=== PATIENT | male | born 1990 | race Caucasian/White ===

== ENCOUNTER 2017-08-01 18:08 | Emergency (ER) | payer OTHER ==
[2017-08-01 18:50] LABS: ABSOLUTE BASOPHIL COUNT 0.1 /CUMM (0.0-0.2); ABSOLUTE EOSINOPHIL COUNT 0.4 /CUMM (0.0-0.7); ABSOLUTE GRANULOCYTE CT 6.7 /CUMM (1.4-6.5); ABSOLUTE LYMPH COUNT 3.7 /CUMM (1.2-3.4); ABSOLUTE MONOCYTE COUNT 0.8 /CUMM (0.10-0.60); BASOPHIL % 0.4 % (0.0-2.0); EOSINOPHIL % 3.1 % (0-5); GRANULOCYTE % 57.8 % (42.2-75.2); HEMATOCRIT 45.5 % (42-52); MEAN CORPUSCULAR HGB 29.4 PG (27.0-31.0); MEAN CORPUSCULAR HGB CONC 33.7 G/DL (33.0-37.0); MEAN CORPUSCULAR VOLUME 87.2 FL (80.0-94.0); MEAN PLATELET VOLUME 8.9 FL (7.4-10.4); PLATELET COUNT 307 /CUMM (130-400); RBC DISTRIBUTION WIDTH 12.3 % (11.5-14.5); RED BLOOD CELL CT 5.22 /CUMM (4.70-6.10); WHITE BLOOD CELL COUNT 11.6 /CUMM (4.8-10.8)
[2017-08-01 20:16] VITALS: BP 157/92
--- NOTE | 2017-08-01 20:38 | ED CARDIAC/CP/PALPITATIONS ---
History of Present Illness General Chief Complaint: Chest Pain Stated Complaint: SLIGHT CHEST PAIN PER PT Source: patient, old records Exam Limitations: no limitations Vital Signs & Intake/Output Vital Signs & Intake/Output Vital Signs Date Time Temp Pulse Resp B/P B/P Pulse O2 O2 Flow FiO2 Mean Ox Delivery Rate 08/01 2052 Room Air 08/01 2015 98.2 75 18 157/92 98 Room Air 08/01 1820 97.8 80 22 155/96 98 Allergies Coded Allergies: No Known Allergies (05/09/17) Reconcile Medications No Known Home Medications Triage Note: PER PT FEELS LIKE HEART IS TRYING TO GO INTO A FIB SINCE 0600 WOKE UP THIS AM THEN A SHORT TIME LATER FELT IT FLUTTERING Triage Nurses Notes Reviewed? yes HPI: Patient presents for evaluation of intermittent fluttering in his chest. He fears he will go back into atrial fibrillation. He states that although he has been having episodes of palpitations since age 15 he was just diagnosed with atrial fibrillation about 3 months ago. He states that ever since being cardioverted at that time he has suffered lower substernal chest discomfort intermittently. He states that he did have an episode of that same chest discomfort about 3 hours ago. Fortunately the patient is pain-free and symptom- free at this time. Past History Travel History Traveled to [place] past 21 day No Medical History Any Pertinent Medical History? see below for history Neurological: NONE EENT: NONE Cardiovascular: AFIB Respiratory: NONE Gastrointestinal: NONE Hepatic: NONE Renal: NONE Musculoskeletal: NONE Psychiatric: NONE Endocrine: NONE Surgical History Surgical History: non-contributory Psychosocial History What is your primary language Georgian Tobacco Use: Current Daily Use Daily Tobacco Use Amount/Type: => 5 Cigarettes daily ETOH Use: 5 nights per week, 1-8 beers at a time Family History Hx Contributory? No Review of Systems Review of Systems Constitutional: Reports: no symptoms. EENTM: Reports: no symptoms. Respiratory: Reports: no symptoms. Cardiovascular: Reports: see HPI. GI: Reports: no symptoms. Genitourinary: Reports: no symptoms. Musculoskeletal: Reports: no symptoms. Skin: Reports: no symptoms. Neurological/Psychological: Reports: no symptoms. Hematologic/Endocrine: Reports: no symptoms. Immunologic/Allergic: Reports: no symptoms. All Other Systems: Reviewed and Negative Physical Exam Physical Exam Cardiovascular: see below Comments: Gen.: Well-nourished, well-developed, no acute respiratory distress. Head: Normocephalic, atraumatic. Eyes: Normal inspection bilaterally Ears: Normal inspection bilaterally Nose: Normal inspection Throat/mouth : Moist mucosa Neck: Supple, full range of motion, no goiter Heart: Regular rate and rhythm, soft systolic murmur throughout the precordium Lungs: Clear to auscultation bilaterally with normal air entry Chest: Nontender Back: Normal range of motion Abdomen: Soft, nontender, nondistended, normal bowel sounds Extremities: Normal range of motion grossly, equal radial pulses, no cyanosis clubbing or edema, calves nontender Neurologic: Cranial nerves grossly intact, speech is clear Skin: warm and dry Psychiatric: Calm, cooperative, no apparent delusions or hallucinations Core Measures ACS in differential dx? No CVA/TIA Diagnosis No Sepsis Present: No Sepsis Focused Exam Completed? No Progress Differential Diagnosis: dysrhythmia, hypothyroidism, anxiety, coronary artery disease, holiday heart syndrome Plan of Care: Orders Procedure Date/time Status Telemetry/Barrel Turner 08/01 2036 Active TROPONIN LEVEL 08/01 182 Complete MAGNESIUM 08/01 182 Complete COMPREHENSIVE METABOLIC PANEL 08/01 1821 Complete CBC WITHOUT DIFFERENTIAL 08/01 1820 Complete EKG 08/01 181 Active Laboratory Tests 08/01/17 1830: Anion Gap 13, Estimated GFR > 60, BUN/Creatinine Ratio 18.9, Glucose 94, Calcium 9.8, Magnesium 1.9, Total Bilirubin 0.3, AST 31, ALT 61, Alkaline Phosphatase 55 , Troponin I < 0.01, Total Protein 7.6, Albumin 4.8, Globulin 2.8, Albumin/ Globulin Ratio 1.7, CBC w Diff NO MAN DIFF REQ, RBC 5.22, MCV 87.2, MCH 29.4, RDW 12.3, MPV 8.9, Gran % 57.8, Lymphocytes % 31.7, Monocytes % 7.0, Eosinophils % 3.1, Basophils % 0.4, Absolute Granulocytes 6.7 H, Absolute Lymphocytes 3.7 H, Absolute Monocytes 0.8 H, Absolute Eosinophils 0.4, Absolute Basophils 0.1, PUBS MCHC 33.7 Initial ED EKG: NSR, rate (80) Prior EKG: changed (narrow complex tachy on prior) Comments: 08/01/2017 9:07:18 PM I have had a lengthy discussion with Sagar regarding his workup tonight along with his alcohol consumption and tobacco use. I've asked that he follow up with his anesthesiologists' assistant this week (he has an appointment on August 08 already scheduled). Regarding his chest pain episodes, he states that there has been no change in his chest pains since his cardioversion months ago. I doubt an acute coronary syndrome. Departure Departure Disposition: HOME OR SELF CARE Condition: Stable Clinical Impression Primary Impression: Palpitations Referrals: Patient Has No Primary Care Dr (PCP/Family) Additional Instructions: Follow-up with Dr. Cordero's office tomorrow. Notify your primary care doctor of this emergency department visit and treatment plan (do not currently have a primary care physician and please contact the [facility] at [phone]). Return if any concerns or sudden worsening. Try to quit smoking and cut down on your alcohol intake. Please note that there might be incidental findings in your evaluation that are unrelated to the current emergency department visit. Please notify your primary care doctor about this emergency department visit in order to obtain and review all of the testing performed so that these incidental findings can be monitored as needed. If you had an x-ray performed, please understand that some fractures may not be seen on the initial set of x-rays. If your symptoms persist you might need a repeat set of x-rays to check for such a fracture. If you had a laceration evaluated, please understand that foreign bodies such as glass or wood may not be visible to the naked eye or on plain x-rays. If the wound becomes red, swollen, increasingly more painful or if there is any drainage from the wound, please have it reevaluated by a physician for the possibility of a retained foreign body. If you're unable to follow up as outlined in the discharge instructions please return to the emergency department. Thank you for choosing the [facility] Emergency Department for your care. It was a pleasure to serve you today. Bhavik Pickett M.D. [facility] Departure Forms: Customer Survey General Discharge Information Prescriptions: Current Visit Scripts No Known Home Medications Critical Care Note Critical Care Note Critical Care Time: non-applicable
== END 2017-08-01 21:17 ==
LOC: ERH 18:08
PROVIDERS: Emergency Medicine
DX: R00.2 Palpitations (principal)
CPT/HCPCS: 93005; 93010